=== PATIENT | female | born 1965 | race Asian ===

== ENCOUNTER 2024-07-04 10:32 | Outpatient (CLI) | payer BC, MEDICAID, SELFPAY ==
--- NOTE | ~2024-07-04 | XR_ITS ---
XR abdomen/kub 1V Ordering provider: Neil Roberts MD History: . Unspecified abdominal pain, CONSTIPATION, DIARRHEA . Comparison: None. FINDINGS: BOWEL: Fecal material seen in the colon which may indicate constipation. Nonobstructive bowel gas pat tern. ORGANOMEGALY: None. SIGNIFICANT PATHOLOGIC CALCIFICATIONS: None. OTHER: Loss of volume of L2 with. No free air is seen under the diaphragm. IMPRESSION: NO ACUTE ABDOMINAL FINDINGS. Constipation. Reviewed, dictated and finalized at location A.
[2024-07-04 11:17] LABS: Basophils Percent Auto 0.7 % (0.2-1.2); Eosinophils Absolute Auto 0.1 K/mm3 (0-0.3); Eosinophils Percent Auto 1.8 % (0-4.4); Hematocrit 40.9 % (37.0-47.0); Hemoglobin 13.6 g/dL (12.0-15.0); Immature Granulocyte Absolute 0.01 K/mm3 (0.00-0.031); Immature Granulocyte Percent A 0.2 % (0-0.5); Lymphocytes Absolute Auto 1.84 K/mm3 (0.9-3.2); Lymphocytes Percent Auto 33.8 % (18.3-44.2); Mean Corpuscular HGB Conc 33.3 g/dl (32-36); Mean Corpuscular Hemoglobin 29.8 pg (26-34); Mean Corpuscular Volume 89.7 fl (80-100); Mean Platelet Volume 11.8 fl (7.4-10.4); Monocytes Absolute Auto 0.5 K/mm3 (0.1-0.6); Monocytes Percent Auto 8.6 % (2.6-8.5); Neutrophils Percent Auto 54.9 % (45.5-73.1); Platelet Count Result 279 k/mm3 (150-375); Red Blood Count 4.56 M/mm3 (4.2-5.4); Red Cell Distribution Width 12.7 % (11.5-14.5); White Blood Count 5.5 K/mm3 (4.5-10.0)
[2024-07-04 12:03] LABS: Alanine Aminotransferase 12 U/L (6-35); Albumin Level 4.4 g/dL (3.5-5.1); Alkaline Phosphatase 46 U/L (38-126); Anion Gap 11 mmol/L (4-12); Aspartate Amino Transferase 21 U/L (14-36); Bilirubin,Total 0.4 mg/dL (0.2-1.3); Blood Urea Nitrogen 18 mg/dL (7-17); Calcium 9.2 mg/dL (8.4-10.2); Carbon Dioxide 22 mmol/L (22-30); Chloride 105 mmol/L (98-107); Estimated Glomerular Filt Rate 57; Glucose 94 mg/dL (65-110); Potassium 4.4 mmol/L (3.4-5.0); Sodium 138 mmol/L (137-145)
[2024-07-04 13:05] LABS: Folic Acid 12.9 ng/mL (2.76->20)
== END 2024-07-04 10:33 | disposition home or self-care (01) ==
PROVIDERS: PCP Nurse Practitioner Family; Visit Provider Psychiatry & Neurology Neurology
DX: K59.00 Constipation, unspecified (principal); G40.909 Epilepsy, unspecified, not intractable, without status epilepticus; Z79.899 Other long term (current) drug therapy
CPT/HCPCS: 36415; 74018; 80053; 82607; 82652; 82746; 83921; 84443; 85025

== ENCOUNTER 2024-07-04 15:54 | Emergency (ER) | payer BC, MEDICAID, SELFPAY ==
[2024-07-04 16:28] VITALS: BP 129/75; PULSE 82; RESP 15; TEMP 36.6; O2SAT 100
--- NOTE | 2024-07-04 18:49 | PC.NURSE ---
Pt furious about wait time in ED. States I was told to come here to be seen and admitted. RN tried to inform pt that the ED is full and that when we have a room available she will be brought back to a room. Pt continued to voice frustration to RN and stated to RN that she was going to leave. PT ambulated to exit using steady gait and in NAD.
== END 2024-07-04 18:49 | disposition left against medical advice (07) ==
LOC: ANHED 18:58
PROVIDERS: PCP Nurse Practitioner Family
DX: R21 Rash and other nonspecific skin eruption (principal)
CPT/HCPCS: 99199

== ENCOUNTER 2024-08-22 09:57 | Emergency (ER) | payer BC, MEDICAID, SELFPAY ==
--- NOTE | ~2024-08-22 | US_ITS ---
US breast LT limited 08/22/2024 11:59 Indication: Palpable left breast abnormality for 2 years. Palpable lump has become red and painful wi th discharge. Procedure: High-resolution Limited ultrasound of the left breast Comparison: No prior studies for comparison. Findings: At 5:00, 3 cm from the nipple there is an oval heterogeneous appearing subcutaneous mass me asuring 1.3 x 1.1 x 1.5 cm with internal cystic changes. There is marginal vascularity. No posterior features. Impression: 1: Complex oval subcutaneous left breast mass at 5:00, 3 cm from the nipple, most likely infectious/p hlegmonous change given the clinical history. Recommend repeat ultrasound following appropriate thera py. BI-RADS CATEGORY 3-PROBABLY BENIGN FINDING RECOMMENDATION: 3 month follow-up left breast ultrasound recommended following appropriate therapy. Reviewed, dictated and finalized at location B. Impression: 1: Complex oval subcutaneous left breast mass at 5:00, 3 cm from the nipple, mo st likely infectious/phlegmonous change given the clinical history. Recommend r epeat ultrasound following appropriate therapy. BI-RADS CATEGORY 3-PROBABLY BENIGN FINDING RECOMMENDATION: 3 month follow-up left breast ultrasound recommended following appropriate therapy.
--- NOTE | ~2024-08-22 | CT_ITS ---
CT abdomen pelvis wo con Ordering provider: Agnieszka Spear PA-C History: 59 years Female with . low abd pain, flank pain, urinary frequency . Comparison: None. Technique: CT abdomen and pelvis without IV and without oral contrast. Automated exposure control and iterative reconstruction technique were employed. The dose-length product was 527.23 mGy-cm. Findings: VISUALIZED LOWER CHEST: Dependent atelectatic changes. UPPER ABDOMINAL ORGANS: Liver: Normal. Gallbladder: Stones seen in the area of the fundus. Spleen: Normal. Stomach/duodenum: Normal. Pancreas: Normal. Adrenals: Normal. Kidneys: Normal. PELVIC ORGANS: The bladder is underfilled with thickened wall.. Retroverted uterus. BOWEL AND MESENTERY: Colon: No evidence of diverticulitis. Normal appendix. Small Bowel: Normal. No obstruction. Peritoneum/mesentery: No free air or free fluid. No mesenteric lymphadenopathy. RETROPERITONEUM: Normal aorta. No retroperitoneal lymphadenopathy. MUSCULOSKELETAL: Superficial soft tissues: The superficial soft tissues are normal. Bones: Age appropriate degenerative changes of the spine. Compression fracture of L2 which is most li elmer chronic. IMPRESSION: 1. No evidence of appendicitis, diverticulitis or intestinal obstruction. 2. Cholelithiasis. Reviewed, dictated and finalized at location A.
[2024-08-22 10:02] VITALS: BP 148/92; PULSE 94; RESP 16; TEMP 36.4; O2SAT 99
--- NOTE | 2024-08-22 11:26 | ED.SKABFB ---
HPI - Skin/Abscess/Foreign Bdy General Chief complaint: Skin/Abscess/Foreign Body Stated complaint: chest pain Time Seen by Provider: 08/22/24 10:41 Source: patient Mode of arrival: ambulatory Limitations: no limitations History of Present Illness HPI narrative: This is a 59-year-old female that presents to the emergency department for a lesion on her left breast. Reports this has been present for several years. Over the last week the area has become painful. She has had some drainage from the area. She also reports she has had increased urination the last couple of weeks. Reports some lower abdominal pain. Denies fevers, dysuria, hematuria. Related Data Allergies Allergy/AdvReac Type Severity Reaction Status Date / Time No Known Allergies Allergy Verified 08/22/24 09:58 Review of Systems Review of Systems: CONSTITUTIONAL: Denies fever GASTROINTESTINAL: Reports abdominal pain. Denies nausea, vomiting GENITOURINARY: Reports urinary frequency. Denies hematuria. SKIN: Reports redness All systems reviewed & are unremarkable except as noted in HPI and below PMFSH Past Medical History Medical History (Updated 08/22/24 @ 13:54 by Agnieszka Spear PA-C) Abdominal pain Dysuria Social History Social History Smoking status: Never smoker Alcohol intake: never Substance use: never Substance use type: does not use Lack of Transportation: No Lack of Food: Often True Current Housing: I Have Housing Concerned About Future Housing: Decline to Answer Difficulty Paying Gas/Electric Bills: YES Difficulty Paying for Meds: No Currently Unemployed: Decline to Answer Education: Decline to Answer Difficulty w/ Childcare or Family Care: No Living arrangements: with family Gender identity (if verbalized by the patient): Female Exam Narrative: GENERAL: Well-appearing, well-nourished, and in no acute distress. HEAD: Normocephalic, atraumatic. EYES: EOMI. CHEST: Clear to auscultation. No respiratory distress. No wheezes rales or rhonchi HEART: Regular rate and rhythm. No murmur heard. Normal peripheral pulses. ABDOMEN: Soft, nontender, nondistended, normal active bowel sounds. EXTREMITIES: Normal range of motion. No edema. SKIN: Warm, dry, no rash. NEURO: No focal deficits. Alert and oriented x3. PSYCH: Normal mood and affect BREAST: Left breast with 2cm mass at the 3 o clock position that is erythematous, no active drainage Course Course Emergency Course: Patient updated on her workup and agrees with plan of care Consultations Consultation #1: Spoke with Dr. Ramírez about patient and workup. Patient will be started on Keflex and should follow up in clinic for further management. Date: 08/22/24 Vital Signs Vital signs: Vital Signs Temperature 97.6 F 08/22/24 10:02 Pulse Rate 94 08/22/24 10:02 Respiratory Rate 16 08/22/24 10:02 Blood Pressure 148/92 H 08/22/24 10:02 Pulse Oximetry 99 08/22/24 10:02 Temperature 97.6 F 08/22/24 10:02 Pulse Rate 94 08/22/24 10:02 Respiratory Rate 16 08/22/24 10:02 Blood Pressure 148/92 H 08/22/24 10:02 Pulse Oximetry 99 08/22/24 10:02 MDM - Skin/Abscess/Foreign Bdy MDM Narrative Medical decision making narrative: Patient presents to the ER with multiple complaints. Reporting pain and swelling to the left breast. Also reporting some lower abdominal discomfort and urinary symptoms. Patient is afebrile and nontoxic appearing. CBC without leukocytosis. Metabolic panel without concerning findings. Urine without evidence of infection. CT abdomen and pelvis shows cholelithiasis, no acute findings. breast ultrasound shows a complex oval subcutaneous mass at 5:00 a.m. 3 cm from the nipple. Most likely infectious/phlegmonous change. Spoke with Dr. Ramírez about patient and workup. Patient will be started on Keflex and should follow up in clinic for further management. P
[2024-08-22 11:33] LABS: Basophils Absolute Auto 0.1 K/mm3 (0.0-0.1); Basophils Percent Auto 0.7 % (0.2-1.2); Eosinophils Absolute Auto 0.1 K/mm3 (0-0.3); Eosinophils Percent Auto 1.4 % (0-4.4); Hematocrit 38.5 % (37.0-47.0); Hemoglobin 12.7 g/dL (12.0-15.0); Immature Granulocyte Absolute 0.01 K/mm3 (0.00-0.031); Immature Granulocyte Percent A 0.1 % (0-0.5); Lymphocytes Percent Auto 35.8 % (18.3-44.2); Mean Corpuscular Hemoglobin 29.8 pg (26-34); Mean Corpuscular Volume 90.4 fl (80-100); Mean Platelet Volume 11.5 fl (7.4-10.4); Monocytes Absolute Auto 0.5 K/mm3 (0.1-0.6); Monocytes Percent Auto 7.6 % (2.6-8.5); Neutrophils Absolute Auto 3.8 K/mm3 (1.3-6.7); Neutrophils Percent Auto 54.4 % (45.5-73.1); Platelet Count Result 250 k/mm3 (150-375); Red Blood Count 4.26 M/mm3 (4.2-5.4); Red Cell Distribution Width 12.9 % (11.5-14.5)
[2024-08-22 11:49] LABS: Anion Gap 7 mmol/L (4-12); Blood Urea Nitrogen 13 mg/dL (7-17); CRP < 0.5 mg/dL (<1.0); Calcium 9.2 mg/dL (8.4-10.2); Carbon Dioxide 25 mmol/L (22-30); Chloride 106 mmol/L (98-107); Estimated CRCL calculation 64 ml/min; Estimated Glomerular Filt Rate > 60; Glucose 95 mg/dL (65-110); Potassium 4.4 mmol/L (3.4-5.0); Sodium 138 mmol/L (137-145)
[2024-08-22 12:04] LABS: Add Urine Microscopic? NO; Appearance Urine Clear (Clear); Bilirubin Urine Negative (Negative); Blood Urine Negative (Negative); Color Urine Yellow (Yellow); Glucose Urine UA Negative (Negative); Ketones Urine Negative (Negative); Leukocyte Esterase Ur Negative LEU/UL (Negative); Nitrate Urine Negative (Negative); Protein Urine Negative (Negative); Specific Grav Ur 1.008 (1.001-1.035); Urobilinogen Urine 0.2 mg/dL (<2.0); pH Urine 7.5 (5.0-9.0)
[2024-08-22 12:10] LABS: Erythrocyte Sedimentation Rate 44 mm/hr (0-20)
[2024-08-22 14:09] VITALS: BP 136/80; PULSE 84; RESP 18; O2SAT 98
== END 2024-08-22 14:12 | disposition home or self-care (01) ==
PROVIDERS: Emergency Provider Physician Assistant; PCP Nurse Practitioner Family
DX: N61.1 Abscess of the breast and nipple (principal); K80.20 Calculus of gallbladder without cholecystitis without obstruction
CPT/HCPCS: 36415; 74176; 76642; 80048; 81003; 85025; 85652; 86140; 99284

== ENCOUNTER 2025-01-16 09:21 | Outpatient (CLI) | payer BC, MEDICAID, SELFPAY ==
--- NOTE | ~2025-01-16 | MMUS_ITS ---
EXAMINATION: MM diagnostic anna marie BI w jonathan, US breast LT limited HISTORY: Follow-up abscess TECHNIQUE: 3-D tomosynthesis images of the breasts were performed and synthetic 2-D images were gener ated. CAD analysis was submitted and interpreted. High resolution limited left breast ultrasound was performed. COMPARISON: 08/22/2024 BREAST PARENCHYMAL COMPOSITION:Not Dense. There are scattered areas of fibroglandular density. FINDINGS: MAMMOGRAPHIC FINDINGS: No mass lesion or distortion seen in either breast. No suspicious mesenteric or calcification seen. P arenchymal pattern is unremarkable. ULTRASOUND: No solid or cystic lesion seen in the region scanned at 2:00 and 5:00 positions left breast, 3 cm fro m the nipple. IMPRESSION: No mammographic or sonographic abnormality seen. BI-RADS Category 1: Negative Reviewed, dictated and finalized at location . T METAL HELPER IMPRESSION: No mammographic or sonographic abnormality seen. BI-RADS Category 1: Negative
--- OUTSIDE RECORDS SUMMARY | 2025-01-16 10:01 | XMS_ITS | Continuity of Care Document ---
Author Organization [facility] Address [address] [place] [address] [place] [address] Phone Care Team Providers Care Car Sealer Name Role Phone Prashant Mueller MD Unavailable Unavailable Advance Directives Directive Yes / No Effective Date File Name No Information Encounters Encounter Description Practice Location Reason(s) For Visit Diagnoses Date Provider Providers Copied on Encounter [facility], [address] [facility] [place], [id number], [place] tel:[phone] [facility] No Information Ervin Cerda. [address] [facility] [place], [id number], [place]. tel:[phone] Family History Family Member Type Diagnosis Age At Onset No Information Payers Payer name Insurance type Covered republican ID Authoriza tion(s) No Information Social History Type Description Quantity Date Captured Comments Sex Female Smoking Status No Information Chief Complaint And Reason For Visit No Information Plan Of Treatment Date Type Action Status No Information History Of Present Illness Encounter Date Complaint History Of Prese nt Illness No Information Instructions Date Instruction Additional Infor mation No Information Assessments Type Assessment Date No Information
--- OUTSIDE RECORDS SUMMARY | 2025-01-16 10:01 | XMS_ITS | Continuity of Care Document ---
Author Organization [facility] Address [address] [place] [address] Phone Care Team Providers Care Telex Operator Name Role Phone Latosha De Paz MD Unavailable Unavailable Medications Medication Instructions Dosage Effective Dates (start - stop) Status Comments zonisamide 100 mg Cap take 3 capsule (30 0MG) by ORAL route every day 300 MG - Active Procedures Procedure Date 1ST COMPRE PREV MED E/M NEW PT 1-4 Advance Directives Directive Yes / No Effective Date File Name Resuscitation Not Answered N/A N/A Life Support Not Answered N/A N/A Intubation Not Answered N/A N/A Antibiotics Not Answered N/A N/A IV Fluid Support Not Answered N/A N/A Tube Feed Not Answered N/A N/A Other Directive N/A N/A WARNING:The information contained in this section is historical and is provided for information only and does not constitute a legal document or any assurance that the information is still accurate. Please verify the information with the gonzáles of the legal document before using it for clinical purposes. Encounters Encounter Description Practice Location Reason(s) For Visit Diagnoses Date Provider Providers Copied on Encounter 1ST COMPRE PREV MED E/M NEW PT 1-4 [facility] , [address], [place], [place], [id number], [place] tel:[phone] Bingalida On Lemp physical exam (chief complaint) seizure (chief complaint) Routine general medical examination at a health care facilityOther convulsionsRoutine general medical examination at a health care facility 0 Zandra Reina. [address], [place], [place], [id number] , [place]. tel:[phone] Family History Family Member Type Diagnosis Age At Onset No Information Payers Payer name Insurance type Covered democrat ID Zach green(s) No Information Social History Type Description Quantity Date Captured Comments Alcohol Use Details No Caffeine Use Details No Tobacco Use Status No Information Smoking Status No Information Sex Female Vital Signs Date / Time: Height Weight BMI Pulse Rate Blood Pressure Temperature Respiratory Rate Body Surface Area Head Circumference Head Circ. Percentile Wt./Malcolm. Percentile BMI percentile Pulse Ox Inhaled Ox 2:44 PM 63.00 in 148.20 lbs 26.2 5 kg/m eter (2) 74 /min 98/75 mm[Hg] 97.90 F Chief Complaint And Reason For Visit From encounter dated '08/08/2010 14:00'. physical exam (chief complaint) seizure (chief complaint) Reason For Referral Reason For Referral No Information Plan Of Treatment Date Type Action Status Referral Referred To: [facility] Mammogram Van Ordered: Referral: [facility] Mammogram Van. Mammography Screening Cntr. Appointment date/timeframe: 11/01/2010 ordered History Of Present Illness Encounter Date Complaint History Of Prese nt Illness No Information Functional Status Date Functional Assessmen t Pain Score 0/10 Instructions Date Instruction Additional Infor mation No Information Assessments Type Assessment Date No Information Patient Care Teams Name Effective Dates (start - stop) Status Members No Information
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
--- OUTSIDE RECORDS SUMMARY | 2025-01-16 10:01 | XMS_ITS | Continuity of Care Document ---
Author Organization [facility] Address [address] [place] [address] Phone Care Team Providers Care Conference Center Coordinator Name Role Phone Xavier Elizabeth MD Unavailable Unavailable Medications Medication Instructions Dosage Effective Dates (start - stop) Status Comments CETIRIZINE HCL 10MG TABS 1 QD-daily - Active Advance Directives Directive Yes / No Effective Date File Name No Information Encounters Encounter Description Practice Location Reason(s) For Visit Diagnoses Date Provider Providers Copied on Encounter [facility], [id number] [place] [address], [id number] , tel: [phone] [facility] No Information [address]. [address] [place] [address], [id number] , . tel: [phone] [facility], [id number] [place] [address], [id number] , tel: [phone] [facility]CDERMAT[facility]APH[facility]RT[facility] [address] [place]. [address] [place] [address], [id number] , . tel: [phone] Family History Family Member Type Diagnosis Age At Onset No Information Payers Payer name Insurance type Covered libertarian ID Authoriza tion(s) No Information Social History Type Description Quantity Date Captured Comments Sex Female Smoking Status No Information Chief Complaint And Reason For Visit No Information Reason For Referral Reason For Referral No Information History Of Present Illness Encounter Date Complaint History Of Prese nt Illness No Information Functional Status Date Functional Assessmen t No Information Instructions Date Instruction Additional Infor mation No Information Assessments Type Assessment Date No Information Patient Care Teams Name Effective Dates (start - stop) Status Members No Information
== END 2025-01-16 09:22 | disposition home or self-care (01) ==
LOC: ANHIMG 09:23
PROVIDERS: PCP Nurse Practitioner Family; Visit Provider Surgery
DX: N61.1 Abscess of the breast and nipple (principal)
CPT/HCPCS: 76642; 77062; 77066; G0279